=== PATIENT | male | born 1970 | race Caucasian/White ===

== ENCOUNTER 2021-11-27 14:58 | Emergency (ER) | payer OTHER ==
[2021-11-27 16:26] VITALS: RESP 18
--- NOTE | 2021-11-27 17:17 | ED ---
URI HPI - General Chief Complaint: Upper Respiratory Infection Stated Complaint: COVID + Time Seen by Provider: 11/27/21 16:31 Source: patient, RN notes reviewed Mode of arrival: ambulatory Limitations: no limitations - History of Present Illness Initial Comments: Patient is a 51-year-old male that presents to the emergency department complaining of being Covid positive and wanted monoclonal antibodies. Patient otherwise a well-appearing and has very mild symptoms. He notes he came to get the infusion to prevent any worsening of symptoms. Patient was otherwise well- appearing he denied chest pain shortness breath headache nausea vomiting diarrhea constipation fever fatigue chills. - Related Data Allergies Allergy/AdvReac Type Severity Reaction Status Date / Time No Known Allergies Allergy Verified 11/27/21 16:26 Review of Systems ROS Statement: Those systems with pertinent positive or pertinent negative responses have been documented in the HPI. ROS Other: All systems not noted in ROS Statement are negative. Past Medical History Past Medical History: Hypertension History of Any Multi-Drug Resistant Organisms: None Reported Past Surgical History: Cholecystectomy, Hernia Repair Past Psychological History: No Psychological Hx Reported Smoking Status: Never smoker Past Alcohol Use History: None Reported Past Drug Use History: None Reported General Exam Limitations: no limitations General appearance: alert, in no apparent distress Head exam: Present: atraumatic, normocephalic, normal inspection Eye exam: Present: normal appearance, PERRL, EOMI. Absent: scleral icterus, conjunctival injection, periorbital swelling ENT exam: Present: normal exam, mucous membranes moist Neck exam: Present: normal inspection Respiratory exam: Present: normal lung sounds bilaterally. Absent: respiratory distress, wheezes, rales, rhonchi, stridor Cardiovascular Exam: Present: regular rate, normal rhythm, normal heart sounds. Absent: systolic murmur, diastolic murmur, rubs, gallop, clicks Extremities exam: Present: normal inspection, full ROM, normal capillary refill. Absent: tenderness, pedal edema, joint swelling, calf tenderness Neurological exam: Present: alert, oriented X3 Psychiatric exam: Present: normal affect, normal mood Skin exam: Present: warm, dry, intact, normal color. Absent: rash Course Vital Signs 11/27/21 16:23 Temperature 98.0 F Pulse Rate 110 H Respiratory 18 Rate Blood Pressure 152/97 O2 Sat by Pulse 97 Oximetry Medical Decision Making - Medical Decision Making 51-year-old male Covid-positive on monoclonal antibodies. Covid test ordered and is positive. Patient does meet criteria for monoclonal antibodies. Case discussed with Dr. Bahena. - Lab Data Lab Results 11/27/21 Range/Units 16:27 Coronavirus (PCR) Detected A (Not Detectd) Disposition Clinical Impression: COVID Disposition: HOME SELF-CARE Condition: Stable Instructions (If sedation given, give patient instructions): Coronavirus Disease 2019 (COVID-19) Additional Instructions: Please return to the Emergency Department if symptoms worsen or any other concerns. Is patient prescribed a controlled substance at d/c from ED?: No Referrals: Sanjiv Benítez MD [Primary Care Provider] - 1-2 days Time of Disposition: 17:16
[2021-11-27] MEDS ORDERED: SODIUM CHLORIDE 0.9% 50 ML IVPB ONE (17:30)
[2021-11-27] MEDS ORDERED: BAMLANIVIMAB (EUA) 700 MG, ETESEVIMAB (EUA) 1,400 MG in SODIUM CHLORIDE 0.9% 100 ML IVPB ONE (17:30)
[2021-11-27 19:25] VITALS: BP 150/97; PULSE 78; TEMP 97.6
== END 2021-11-27 19:25 | disposition home or self-care (01) ==
LOC: EC 14:58
DX: U07.1 COVID-19 (principal); I10 Essential (primary) hypertension
CPT/HCPCS: 87635; 99283; J3490